=== PATIENT | male | born 1995 | race Caucasian/White ===

== ENCOUNTER 2018-03-01 09:55 | Emergency (ER) | payer OTHER ==
--- NOTE | 2018-03-01 12:32 | ED ---
Headache - HPI Summary HPI Summary: Pt. is a 22 y.o male who presents to ER for acute onset headache upon awaking just prior to arrival. Pt. states he sustained a head injury about one week ago and has been having post concussive symptoms since. Pt.'s mother states concussive sxs have been improving until he woke up this morning in severe pain. Pt. states he took tylenol and motrin and h/a did improve. Denies visual changes, numbness, tingling, weakness, fever, neck pain, recent illness. Pt. otherwise has no past medical hx. Symptoms are moderate in severity. Pt. states he has had numerous concussions in the past but denies hx of migraine h/a. No current modifying factors. - History Of Current Complaint Chief Complaint: EDHeadInjury Stated Complaint: HEAD INJURY Time Seen by Provider: 03/01/18 11:47 Hx Obtained From: Patient, Family/Machinist Wood - Allergies/Home Medications Allergies/Adverse Reactions: Allergies Allergy/AdvReac Type Severity Reaction Status Date / Time No Known Allergies Allergy Verified 03/01/18 11:57 Home Medications: Home Medications NK [No Home Medications Reported] 03/01/18 [History Confirmed 03/01/18] PMH/Surg Hx/FS Hx/Imm Hx Previously Healthy: Yes Cardiovascular History: Reports: Hx Hypertension - Immunization History Immunizations Up to Date: Yes Infectious Disease History: No Infectious Disease History: Denies: Traveled Outside the [place] in Last 30 Days - Social History Occupation: Unemployed Lives: With Family Alcohol Use: Occasionally Substance Use Type: Reports: None Smoking Status (MU): Never Smoked Tobacco Review of Systems Constitutional: Negative Negative: Fever, Chills Eyes: Negative ENT: Negative Cardiovascular: Negative Respiratory: Negative Gastrointestinal: Negative Musculoskeletal: Negative Skin: Negative Positive: Headache. Negative: Weakness, Paresthesia, Numbness All Other Systems Reviewed And Are Negative: Yes Physical Exam Triage Information Reviewed: Yes Vital Signs On Initial Exam: Initial Vitals Temp Pulse Resp BP Pulse Ox 97.3 F 87 16 155/63 99 03/01/18 10:01 03/01/18 10:01 03/01/18 10:01 03/01/18 10:01 03/01/18 10:01 Vital Signs Reviewed: Yes Appearance: Positive: Well-Appearing - Pt. sitting up in bed in NAD. Mother present. Skin: Positive: Warm, Dry Head/Face: Positive: Normal Head/Face Inspection Eyes: Positive: Normal, EOMI, ROYCE ENT: Positive: TMs normal. Negative: Nasal congestion, Nasal drainage, Tonsillar swelling, Tonsillar exudate Neck: Positive: Supple, Nontender Musculoskeletal: Positive: Normal, Strength/ROM Intact Neurological: Positive: Normal, Alert, Oriented to Person Place, Time, CN Intact II-III, Heel to Toe - normal, Finger to Nose - normal, Facial Symmetry, Speech Normal. Negative: Cerebellar Dysfunction, Facial Droop, Slurred Speech, Pronator Drift Present Psychiatric: Positive: Affect/Mood Appropriate - Devika Coma Scale Best Eye Response: 4 - Spontaneous Best Motor Response: 6 - Obeys Commands Best Verbal Response: 5 - Oriented Coma Scale Total: 15 Diagnostics - Vital Signs Vital Signs Temp Pulse Resp BP Pulse Ox 03/01/18 10:01 97.3 F 87 16 155/63 99 - Laboratory Lab Statement: Any lab studies that have been ordered have been reviewed, and results considered in the medical decision making process. Headache Course/Dx - Course Course Of Treatment: Pt. presenting for acute onset headache just prior to arrival. He has no neuro. deficits on exam. He is afebrile. Case discussed with Dr. Yap. She is concern with new acute onset h/a and recommends brain ct to r /o subarachnoid hemorrhage. CT scan negative. On re-exam pt. is resting comfortably. His h/a has resolved after taking tylenol and motrin prior to arrival. Pt. notes that he has seen a neurologist and PT before for his concussions in [place]. Advised to call his neurologist on Saturday for an apt. Can rotate between tylenol and motrin for h/a. To avoid reading, tv, cellphone and computer screens. Pt. and mother understand and agree with plan. - Diagnoses Differential Diagnosis/HQI/PQRI: Meningitis, Migraine, Subarachnoid Hemorrhage, Tension Headache, Viral Syndrome Provider Diagnoses: Post concussion syndrome Discharge - Sign-Out/Discharge Documenting (check all that apply): Patient Departure - Discharge Plan Condition: Good Disposition: HOME Patient Education Materials: Post Concussion Syndrome (ED) Referrals: [facility] [Outside] No Primary Care Phys,NOPCP [Primary Care Provider] - Additional Instructions: Call your neurologist on Saturday for an appointment Tylenol or Motrin for pain as directed Avoid reading, computer, tv, and cell phone screens Return to ER if symptoms change or worsen - Billing Disposition and Condition Condition: GOOD Disposition: Home
--- NOTE | 2018-03-01 12:55 | RAD ---
Indication: Headache and vision problems since yesterday. Difficulty concentrating. Comparison: No relevant prior exams available on the [facility] for comparison. Technique: Noncontrast CT vertex of skull through foramen magnum. Report: The sulci, ventricles, and basal cisterns are normal for age. L[place]eli matter white matter differentiation is preserved without evidence for edema. No intra or extra axial hemorrhage, mass, or fluid collection detected. Unremarkable visualized orbital contents. Unremarkable calvarium and skull base. Unremarkable scalp. The visualized paranasal sinuses and mastoid air spaces are clear. IMPRESSION: #. Negative unenhanced head CT.
[2018-03-01 13:25] VITALS: BP 119/63
== END 2018-03-01 13:24 | disposition home or self-care (01) ==
LOC: ED 09:55
DX: F07.81 Postconcussional syndrome (principal)
CPT/HCPCS: 70450; 99282